=== PATIENT | male | born 1960 | race African-American/Black ===

== ENCOUNTER 2023-09-10 21:42 | Inpatient (IN) | payer OTHER, MEDICARE ==
[~2023-09-10] VITALS: Ht 170.2 cm; Wt 72.6 kg
[2023-09-10] MEDS ORDERED: SODIUM CHLORIDE 0.9% 1,000 ML IV ONE (22:00)
[2023-09-10 22:54] LABS: BASOPHILS % 0.3 % (0.0-2.0); EOSINOPHILS % 0.4 % (0.0-5.0); HEMATOCRIT. 38.6 % (42.0-52.0); HEMOGLOBIN. 13.3 g/dL (14.0-18.0); LYMPHOCYTES % 19.1 % (20.0-50.0); MEAN CORPUSCULAR HEMOGLOBIN 32.9 pg (28.0-32.0); MEAN CORPUSCULAR HGB CONC 34.4 g/dL (31.0-37.0); MEAN CORPUSCULAR VOLUME 95.6 fL (80.0-94.0); MEAN PLATELET VOLUME 8.7 fl (7.4-10.4); MONOCYTES % 15.6 % (2.0-8.0); NEUTROPHILS % 64.6 % (40.0-76.0); PLATELET 134 x1000/uL (130-400); RED BLOOD CELL COUNT 4.04 mill/uL (4.7-6.1); RED CELL DISTRIBUTION WIDTH 14.1 % (11.6-14.6); WHITE BLOOD COUNT 4.2 x1000/uL (4.5-11.0)
[2023-09-10 23:02] LABS: DIFFERENTIAL COMMENT 1
[2023-09-10 23:08] LABS: ALANINE AMINOTRANSFERASE 20 IU/L (10-49); ALBUMIN 3.9 g/dL (3.2-4.8); ASPARTATE AMINOTRANSFERASE 33 IU/L (<34); CARBON DIOXIDE 25 mEq/L (21-32); CHLORIDE 104 mEq/L (98-107); CREATININE 1.2 mg/dL (0.6-1.3); GLUCOSE 129 mg/dL (70-105); PROTEIN TOTAL 6.6 g/dL (6.0-8.3); SODIUM 139 mEq/L (136-145); TROPONIN I HIGH SENSITIVITY 7 ng/L (3.0-53); UREA NITROGEN BLOOD 13 mg/dL (9-23)
[2023-09-10 23:12] LABS: POTASSIUM 2.8 mEq/L (3.5-5.1)
[2023-09-11] MEDS ORDERED: IOHEXOL-350 100 ML BOTTLE ONE (01:40)
[2023-09-11] MEDS ORDERED: POTASSIUM CHLORIDE 20MEQ/PACKET PO NR ×2 (04:15→17:00)
[2023-09-11 08:58] VITALS: BP 152/87; PULSE 65; RESP 18; TEMP 98.1
[2023-09-11] MEDS ORDERED: INFLUENZA VACCINE 05/PF 0.5 ML SYRINGE IM ONE (09:15)
[2023-09-11] MEDS ORDERED: PNEUMOCOCCAL 23-VAL P-SAC VAC 0.5 ML IM ONE (09:15)
[2023-09-11] MEDS ORDERED: GUAIFENESIN 200MG/10ML SUGAR FREE UDC PO PRN (11:15)
[2023-09-11] MEDS ORDERED: CLONIDINE 0.1MG TABLET PO PRN (11:15)
[2023-09-11] MEDS ORDERED: NA PHOS,M-B/NA PHOS,DI-BA ENEMA 118ML PR PRN (11:15)
[2023-09-11] MEDS ORDERED: ACETAMINOPHEN 325MG TABLET PO PRN ×2 (11:15)
[2023-09-11] MEDS ORDERED: DOCUSATE SODIUM 100MG CAPSULE PO PRN (11:15)
[2023-09-11] MEDS ORDERED: ONDANSETRON HCL 4MG/2ML INJ IV PRN (11:15)
[2023-09-11] MEDS ORDERED: MAGNESIUM/ALUMINUM HYDROXIDE/SIMETHICONE 30ML UDC PO PRN (11:15)
[2023-09-11] MEDS ORDERED: IPRATROPIUM/ALBUTEROL 0.5-3(2.5)MG/3ML NEB HHN PRN (11:15)
[2023-09-11] MEDS ORDERED: POTASSIUM CHLORIDE INJ 40 MEQ in DEXT 5% WATER 250 ML IV ONE (11:30)
[2023-09-11 11:57] VITALS: BP 155/87; PULSE 64; RESP 18; TEMP 98.1
[2023-09-11] MEDS: SODIUM CHLORIDE 0.9% 1,000 ML IV SCH ×2 (12:02→20:37)
[2023-09-11] MEDS: AMLODIPINE 5MG TABLET PO SCH (12:02)
[2023-09-11] MEDS: ENOXAPARIN 40MG/0.4ML SYR SUBCUT SCH (12:02)
[2023-09-11 12:07] LABS: HEMATOCRIT. 38.3 % (42.0-52.0); HEMOGLOBIN. 13.2 g/dL (14.0-18.0); MEAN CORPUSCULAR HEMOGLOBIN 32.9 pg (28.0-32.0); MEAN CORPUSCULAR HGB CONC 34.5 g/dL (31.0-37.0); MEAN CORPUSCULAR VOLUME 95.3 fL (80.0-94.0); MEAN PLATELET VOLUME 8.7 fl (7.4-10.4); PLATELET 130 x1000/uL (130-400); RED BLOOD CELL COUNT 4.02 mill/uL (4.7-6.1); RED CELL DISTRIBUTION WIDTH 14.4 % (11.6-14.6); WHITE BLOOD COUNT 3.3 x1000/uL (4.5-11.0)
[2023-09-11 12:10] LABS: DIFFERENTIAL COMMENT 1
[2023-09-11 12:45] LABS: ALANINE AMINOTRANSFERASE 19 IU/L (10-49); ALBUMIN 3.7 g/dL (3.2-4.8); ASPARTATE AMINOTRANSFERASE 30 IU/L (<34); BILIRUBIN TOTAL 0.8 mg/dL (0.1-1.0); CALCIUM 8.7 mg/dL (8.7-10.4); CARBON DIOXIDE 27 mEq/L (21-32); CHLORIDE 107 mEq/L (98-107); CHOLESTEROL 92 mg/dL (<200); CREATININE 0.7 mg/dL (0.6-1.3); GLUCOSE 98 mg/dL (70-105); HDL CHOLESTEROL 34 mg/dL (>55); LDL CHOLESTEROL 37 mg/dL (5-100); POTASSIUM 3.4 mEq/L (3.5-5.1); PROTEIN TOTAL 6.8 g/dL (6.0-8.3); SODIUM 141 mEq/L (136-145); T4 FREE 0.87 ng/dL (0.89-1.76); THYROID STIMULATING HORMONE 3.45 uIU/mL (0.55-4.78); TRIGLYCERIDE 74 mg/dL (0-150); UREA NITROGEN BLOOD 10 mg/dL (9-23)
[2023-09-11] MEDS: KCL 20MEQ/100ML X 2 FOR TOTAL KCL 40MEQ/200ML IV SCH ×2 (12:46→15:15)
[2023-09-11] MEDS ORDERED: METO25TA6 PO (14:22)
[2023-09-11] MEDS ORDERED: LOSA50TA41 PO (14:22)
[2023-09-11] MEDS ORDERED: INDO50CA98 PO (14:22)
[2023-09-11] MEDS ORDERED: TRAZ-251 PO (14:22)
[2023-09-11] MEDS ORDERED: HYDR12.54 PO (14:22)
[2023-09-11] MEDS ORDERED: KCL 20MEQ/100ML PREMIX 100 ML IV ONE (15:15)
[2023-09-11 16:00] VITALS: BP 178/91; PULSE 66; RESP 18; TEMP 97.9
[2023-09-11 16:26] LABS: CREATINE KINASE 51 IU/L (46-171); TROPONIN I HIGH SENSITIVITY 5 ng/L (3.0-53)
[2023-09-11 18:15] LABS: PLATELET ESTIMATE NORMAL
[2023-09-11] MEDS ORDERED: LORAZEPAM 4MG/ML VIAL IV PRN (18:45)
[2023-09-11 20:00] VITALS: BP 141/74; PULSE 64; RESP 19; TEMP 98.2
[2023-09-11 23:57] VITALS: BP 145/80; PULSE 60; RESP 18; TEMP 98
[2023-09-11 23:59] VITALS: BP 144/79; PULSE 59; RESP 18; TEMP 98
[2023-09-12 00:32] LABS: CREATINE KINASE 49 IU/L (46-171); TROPONIN I HIGH SENSITIVITY 5 ng/L (3.0-53)
[2023-09-12 01:19] LABS: *AMPHETAMINES SCREEN URINE NEGATIVE (NEGATIVE); *BARBITURATES SCREEN URINE NEGATIVE (NEGATIVE); *BENZODIAZEPINES SCREEN URINE NEGATIVE (NEGATIVE); *COCAINE SCREEN URINE NEGATIVE (NEGATIVE); CANNABINOID URINE SCREEN PRESUMPTIVE POSITIVE (NEGATIVE); ECSTASY MDMA SCREEN URINE NEGATIVE (NEGATIVE); METHADONE URINE SCREEN Neg (NEGATIVE); OPIATES URINE SCREEN NEGATIVE (NEGATIVE); PHENCYCLIDINE URINE SCREEN NEGATIVE (NEGATIVE)
[2023-09-12 01:45] LABS: CLARITY URINE CLEAR (CLEAR); COLOR URINE YELLOW (YELLOW); GLUCOSE URINE NEGATIVE (NEGATIVE); KETONES URINE NEGATIVE (NEGATIVE); LEUKOCYTE ESTERASE URINE NEGATIVE (NEGATIVE); NITRITE URINE NEGATIVE (NEGATIVE); OCCULT BLOOD URINE NEGATIVE (NEGATIVE); PH URINE 6.5 (4.5-8.0); PROTEIN URINE NEGATIVE (NEGATIVE); SPECIFIC GRAVITY URINE 1.011 (1.005-1.030)
[2023-09-12 03:24] LABS: BACTERIA URINE NONE SEEN; RBC URINE 0-2 /hpf (0-2); SQUAMOUS EPITHELIAL CELL URINE NONE SEEN /lpf (RARE/1+); WBC URINE 0-2 /hpf (0-2)
[2023-09-12 04:00] VITALS: BP 163/87; PULSE 61; RESP 17; TEMP 97.3
[2023-09-12 06:55] VITALS: BP 163/87; PULSE 61; RESP 18; TEMP 97.3
[2023-09-12 08:00] VITALS: BP 157/78; PULSE 65; RESP 18; TEMP 97.9
[2023-09-12] MEDS: AMLODIPINE 5MG TABLET PO SCH (08:53)
[2023-09-12 08:54] LABS: HEMATOCRIT 38.4 % (42.0-52.0); HEMOGLOBIN 12.9 g/dL (14.0-18.0); MEAN CORPUSCULAR HEMOGLOBIN 32.8 pg (28.0-32.0); MEAN CORPUSCULAR HGB CONC 33.6 g/dL (31.0-37.0); MEAN CORPUSCULAR VOLUME 97.5 fL (80.0-94.0); PLATELET 134 x1000/uL (130-400); RED BLOOD CELL COUNT 3.94 mill/uL (4.7-6.1); RED CELL DISTRIBUTION WIDTH 14.4 % (11.6-14.6); WHITE BLOOD COUNT 2.7 x1000/uL (4.5-11.0)
[2023-09-12] MEDS: ENOXAPARIN 40MG/0.4ML SYR SUBCUT SCH (08:55)
[2023-09-12 09:10] LABS: CALCIUM 8.6 mg/dL (8.7-10.4); CARBON DIOXIDE 26 mEq/L (21-32); CHLORIDE 111 mEq/L (98-107); CREATININE 0.5 mg/dL (0.6-1.3); GLUCOSE 87 mg/dL (70-105); POTASSIUM 3.6 mEq/L (3.5-5.1); SODIUM 141 mEq/L (136-145); UREA NITROGEN BLOOD 6 mg/dL (9-23)
[2023-09-12 12:00] VITALS: BP 143/80; PULSE 73; RESP 21; TEMP 98
[2023-09-12 16:00] VITALS: BP 158/92; PULSE 72; RESP 20; TEMP 97.8
[2023-09-12 20:00] VITALS: BP 160/89; PULSE 72; RESP 18; TEMP 97.8
[2023-09-13] VITALS (7 sets, daily range): BP systolic 144–156; BP diastolic 74–92; PULSE 64–80; RESP 16–20; TEMP 96.5–98.8
[2023-09-13 06:51] LABS: CALCIUM 9.3 mg/dL (8.7-10.4); CARBON DIOXIDE 29 mEq/L (21-32); CHLORIDE 105 mEq/L (98-107); CREATININE 0.7 mg/dL (0.6-1.3); GLUCOSE 87 mg/dL (70-105); IRON 121 ug/dL (65-175); PHOSPHORUS 3.3 mg/dL (2.5-4.9); POTASSIUM 3.6 mEq/L (3.5-5.1); SODIUM 141 mEq/L (136-145); TOTAL IRON BINDING CAPACITY 186 ug/dl (250-425); UREA NITROGEN BLOOD 9 mg/dL (9-23)
[2023-09-13 07:30] LABS: HEMATOCRIT. 40.5 % (42.0-52.0); HEMOGLOBIN. 13.9 g/dL (14.0-18.0); MEAN CORPUSCULAR HEMOGLOBIN 32.3 pg (28.0-32.0); MEAN CORPUSCULAR HGB CONC 34.2 g/dL (31.0-37.0); MEAN CORPUSCULAR VOLUME 94.3 fL (80.0-94.0); MEAN PLATELET VOLUME 9.2 fl (7.4-10.4); PLATELET 153 x1000/uL (130-400); WHITE BLOOD COUNT 3.3 x1000/uL (4.5-11.0)
[2023-09-13 08:18] LABS: DIFFERENTIAL COMMENT 1
[2023-09-13] MEDS: AMLODIPINE 5MG TABLET PO SCH (09:00)
[2023-09-13] MEDS: ENOXAPARIN 40MG/0.4ML SYR SUBCUT SCH (12:00)
[2023-09-13 21:56] LABS: PLATELET ESTIMATE NORMAL
[2023-09-14] VITALS: BP 139/80; PULSE 82; RESP 18; TEMP 98.6
[2023-09-14 04:00] VITALS: BP 145/85; PULSE 80; RESP 18; TEMP 98.6
[2023-09-14 08:30] VITALS: BP 152/95; PULSE 82; RESP 18; TEMP 97.5
[2023-09-14] MEDS ORDERED: AMLODIPINE 10MG TABLET PO SCH (09:00)
[2023-09-14 09:35] LABS: BASOPHILS % 0.4 % (0.0-2.0); EOSINOPHILS % 0.6 % (0.0-5.0); HEMATOCRIT. 39.3 % (42.0-52.0); LYMPHOCYTES % 30.5 % (20.0-50.0); MEAN CORPUSCULAR HEMOGLOBIN 32.8 pg (28.0-32.0); MEAN CORPUSCULAR HGB CONC 35.5 g/dL (31.0-37.0); MEAN CORPUSCULAR VOLUME 92.4 fL (80.0-94.0); MONOCYTES % 12.4 % (2.0-8.0); NEUTROPHILS % 56.1 % (40.0-76.0); PLATELET 172 x1000/uL (130-400); RED BLOOD CELL COUNT 4.25 mill/uL (4.7-6.1); RED CELL DISTRIBUTION WIDTH 13.8 % (11.6-14.6); WHITE BLOOD COUNT 6.2 x1000/uL (4.5-11.0)
[2023-09-14 12:00] VITALS: BP 153/86; PULSE 70; RESP 18; TEMP 100
[2023-09-14] MEDS: ENOXAPARIN 40MG/0.4ML SYR SUBCUT SCH (12:00)
[2023-09-14 12:55] VITALS: BP 149/98; PULSE 80; TEMP 97.8; O2SAT 98
[2023-09-14 15:06] LABS: CALCIUM 9.2 mg/dL (8.7-10.4); CARBON DIOXIDE 23 mEq/L (21-32); CHLORIDE 106 mEq/L (98-107); CREATININE 0.7 mg/dL (0.6-1.3); GLUCOSE 88 mg/dL (70-105); PHOSPHORUS 3.5 mg/dL (2.5-4.9); POTASSIUM 3.9 mEq/L (3.5-5.1); SODIUM 141 mEq/L (136-145); UREA NITROGEN BLOOD 12 mg/dL (9-23)
== END 2023-09-14 17:29 | disposition home or self-care (01) | DRG 73 ==
LOC: ER 21:42 → MICUSO 09-11 07:59 → 8WST 09-11 09:13
PROVIDERS: ADMIT Internal Medicine; ATTEND Internal Medicine
DX: G90.8 Other disorders of autonomic nervous system (principal); U07.1 COVID-19; E87.6 Hypokalemia; I10 Essential (primary) hypertension; F10.10 Alcohol abuse, uncomplicated; D72.819 Decreased white blood cell count, unspecified; F17.200 Nicotine dependence, unspecified, uncomplicated; D64.9 Anemia, unspecified; Z79.899 Other long term (current) drug therapy; Z85.21 Personal history of malignant neoplasm of larynx; Z85.819 Personal history of malignant neoplasm of unspecified site of lip, oral cavity, and pharynx; Z85.850 Personal history of malignant neoplasm of thyroid; Z92.21 Personal history of antineoplastic chemotherapy; Z92.3 Personal history of irradiation
CPT/HCPCS: 36415; 71045; 71275; 80048; 80053; 80061; 80305; 80320; 81003; 82550; 82728; 82962; 83540; 83550; 83605; 83735; 84100; 84439; 84443; 84484; 85025; 85027; 85379; 87426; 93005; 93880; 99291; J1650; J3480; J7030; Q9967; G0480